=== PATIENT | female | born 1955 | race Caucasian/White ===

== ENCOUNTER 2019-11-23 15:32 | Observation (INO) | payer OTHER ==
--- NOTE | 2019-11-23 17:06 | PDOC ---
History of Present Illness - General Chief Complaint: Weakness Stated Complaint: Palpitations Time Seen by Provider: 11/23/19 15:57 - History of Present Illness Initial Comments: HPI 64 yo F with PMH of HTN, HLD, T2DM, hypothyroidism, asthma, panic attacks, ROHIT, insomnia, pancreatitis (with complications that required 3 week ICU admission in the past), ?CHF (taking lasix at home; does not recall), and ?bipolar disorder (describes periods of "over-excitation"; w/family hx of similar psychiatrics symptoms; taking trazadone since 2003) presenting with intermittent palpitations and sensation of heart racing x 2 weeks; pt unable to quantify how often or how long episodes occur. She reports associated L arm pain and tingling, nausea, generalized weakness, dyspnea with exertion (but not at rest), and bilateral lower leg swelling (although no edema observed in the ED) since the morning. Pt also with increased anxiety since her palpitations started. Pt also complaining of congestion, mild muscle aches, and possible dysuria for the last two days. Denies CP, fevers, chills, cough, wheezing, other urinary changes, dizziness, loss of consciousness, or changes in strength/sensation. Reports no recent changes in medications or medication adherence. No increased caffeine intake. No recent travel history, sick contacts, hx of blood clots, hx of malignancy, hx of sedentary lifestyle or prolonged siting/bed-rest. It should be noted that pt is poor historian in regards to describing her symptoms. PMHX: as in HPI + additional ICU admission (pt reports "stopped breathing to the brain" and "almost or basically that time") PSHX: extensive abdominal surgery - pt cannot recall what the surgery was. Meds: pt reports trazadone, synthroid, lisinopril, metformin, ambien, lasix; reports more medications but does not recall the names Allergies: nkda Tob: quit 1 year ago; 1/2 ppd x 40 years Etoh: denies recent use; occasionally in the past Rec drugs: denies PCP: at [facility], unable to recall name; also follows with a psychiatrist, unable to recall name ROS GENERAL/CONSTITUTIONAL: No fever or chills. + generalized weakness HEAD, EYES, EARS, NOSE AND THROAT: No change in vision. No ear pain or discharge. No sore throat. + congestion + mild muscle aches CARDIOVASCULAR: No chest pain. + dypnea with exertion, not at rest RESPIRATORY: No cough, wheezing, or hemoptysis. GASTROINTESTINAL: No vomiting, diarrhea or constipation. + nausea GENITOURINARY: No dysuria, frequency, or change in urination. MUSCULOSKELETAL: No joint pain. No neck or back pain. +mild muscle aches; L arm pain SKIN: No rash NEUROLOGIC: No headache, vertigo, loss of consciousness, or change in strength/sensation. ENDOCRINE: No increased thirst. No abnormal weight change HEMATOLOGIC/LYMPHATIC: No anemia, easy bleeding, or history of blood clots. ALLERGIC/IMMUNOLOGIC: No hives or skin allergy. PE GENERAL: Awake, alert, and fully oriented, in no acute distress; anxious appearing HEAD: No signs of trauma, normocephalic, atraumatic EYES: PERRLA, EOMI, sclera anicteric, conjunctiva clear ENT: Auricles normal inspection, hearing grossly normal, nares patent, oropharynx clear without exudates. Moist mucosa NECK: Normal ROM, supple, no lymphadenopathy, JVD, or masses LUNGS: No distress, speaks full sentences, clear to auscultation bilaterally HEART: Regular rate and rhythm, normal S1 and S2, no murmurs, rubs or gallops, peripheral pulses normal and equal bilaterally. ABDOMEN: Soft, nontender, normoactive bowel sounds. No guarding, no rebound. No masses. Extensive scars from previous abdominal surgery. EXTREMITIES : Normal inspection, Normal range of motion, no edema. No clubbing or cyanosis. NEUROLOGICAL: Cranial nerves II through XII grossly intact. Normal speech, normal gait, no focal sensorimotor deficits SKIN: Warm, Dry, normal turgor, no rashes or lesions noted 11/23/19 18:47 11/23/19 19:01 Past History - Medical History Allergies/Adverse Reactions: Allergies Allergy/AdvReac Type Severity Reaction Status Date / Time No Known Allergies Allergy Verified 11/23/19 15:47 Home Medications: Ambulatory Orders Diltiazem [Cardizem -] 60 mg PO TID 11/23/19 Furosemide [Lasix] 20 mg PO DAILY 11/23/19 Levothyroxine [Synthroid -] 75 mcg PO DAILY 11/23/19 Metformin HCl [Glucophage] 500 mg PO DAILY 11/23/19 Zolpidem Tartrate [Ambien] 5 mg PO HS 11/23/19 traZODone HCL [Trazodone HCl] 100 mg PO DAILY 11/23/19 COPD: Yes Diabetes: Yes (NIDDM) HTN: Yes Hypercholesterolemia: Yes Thyroid Disease: Yes - Surgical History Appendectomy: Yes - Psycho-Social/Smoking History Smoking History: Former smoker Have you smoked in the past 12 months: No If you are a former smoker, when did you quit?: 2019 Information on smoking cessation initiated: No - Substance Abuse Hx (Audit-C & DAST Scrn) How often the patient has a drink containing alcohol: Never Score: In Men: 4 or > Positive; In Women: 3 or > Positive: 0 Screen Result (Pos requires Nsg. Audit-10AR): Negative *Physical Exam - Vital Signs Last Vital Signs Temp Pulse Resp BP Pulse Ox 98.2 F 75 22 H 132/80 97 11/23/19 15:48 11/23/19 15:48 11/23/19 15:48 11/23/19 15:48 11/23/19 15:48 ED Treatment Course - LABORATORY CBC & Chemistry Diagram: 11/23/19 16:45 11/23/19 16:45 - RADIOLOGY Radiology Studies Ordered: Category Date Time Status CXR [CHEST PA & LAT] [RAD] Stat Radiology 11/23/19 16:37 Ordered Medical Decision Making - Medical Decision Making MDM 64 yo F (usually seen at [facility]) with PM of HTN, HLD, T2DM, hypothyroidism (on synthroid), asthma, panic attacks, insomnia, pancreatitis (with complications that required 3 week ICU admission in the past), ?CHF (taking lasix at home; does not recall), and ?bipolar disorder (describes periods of "over-excitation"; w/family hx of similar psychiatrics symptoms; taking trazadone since 2003) presenting with intermittent palpitations and sensation of heart racing x 2 weeks; a/w L arm pain and tingling, nausea, generalized weakness, dyspnea with exertion (but not at rest), and bilateral lower leg swelling (although no edema observed in the ED) since the morning. Also c/o congestion + mild muscle aches, and possible dysuria. DDX including but not limited to: arrythmia, anxiety/panic attack, orthostatic hypotension, thyroid pathology, CHF, medication induced, r/o ACS W/U: - CBC, CMP, cardiac profile, BNP, TSH - EKG - NSR 69 bpm, IN interval 174, QRS 106, Qt/Qtc 428/458 - CXR - no acute chest pathology - UA 11/23/19 17:15 Additional hx retrieved: - Called [facility] ED; pt has not been seen in the [facility] ED before - Called pt's daughter (Shelia, ) - Daughter reports pt follows at the [facility] ([phone]) - reports that pt does not have history of cardiac surgery to her knowledge - reports that pt's PCP wanted a "heart ultrasound and MRI" but was unable to do this as pt had to urgently go to [place] recently - reports that pt moved back to [place] 8 months ago. Before that she was in [place] for 10 years. Before that: [place] (20-25 y ago) - Called [facility] multiple times; could not reach anyone for additional history 11/23/19 18:14 - Initial trop neg - CK 536; TSH 58.7; Will add on FT4 Given history of multiple ICU admissions and possible cardiac history, will adm it for tele-obs 11/23/19 18:30 Pt signed out to admitting team. 11/23/19 19:11 Discharge - Discharge Information Problems reviewed: Yes Clinical Impression/Diagnosis: Palpitations Condition: Stable - Admission Yes - Follow up/Referral Referrals: ON STAFF,NOT [Primary Care Provider] - - Patient Discharge Instructions - Post Discharge Activity
[2019-11-23 17:21] LABS: BASO % 1.1 % (0-2.0); EOS % 3.3 % (0-4.5); HEMATOCRIT 39.7 % (32.4-45.2); HEMOGLOBIN 13.7 GM/dL (10.7-15.3); LYMPH % 29.2 % (8-40); MCH 29.1 pg (25.7-33.7); MCHC 34.4 g/dl (32.0-36.0); MEAN CELL VOLUME 84.4 fl (80-96); MEAN PLT VOLUME 9.3 fl (7.5-11.1); MONO % 5.3 % (3.8-10.2); NEUT % 61.1 % (42.8-82.8); PLATELET COUNT 239 K/MM3 (134-434); RDW 14.8 % (11.6-15.6); WHITE BLOOD COUNT 8.7 K/mm3 (4.0-10.0)
[2019-11-23] MEDS ORDERED: guaiFENesin 600 MG TABLET.ER (FP) PO ONE (17:29)
[2019-11-23 18:08] LABS: ALBUMIN 4.3 g/dl (3.4-5.0); ALK PHOS 113 U/L (45-117); ANION GAP 8 MMOL/L (8-16); BILIRUBIN,TOTAL 0.6 mg/dL (0.2-1); BLOOD UREA NITROGEN 18.5 mg/dL (7-18); CALCIUM 9.9 mg/dL (8.5-10.1); CHLORIDE 98 mmol/L (98-107); CO2 30 mmol/L (21-32); GLUCOSE,RANDOM 107 mg/dL (74-106); N-TERMINAL BNP 9.4 pg/ml (5-125); POTASSIUM 3.7 mmol/L (3.5-5.1); SGOT/AST 31 U/L (15-37); SGPT/ALT 32 U/L (13-61); SODIUM 136 mmol/L (136-145); TOT PROT 8.1 g/dl (6.4-8.2)
--- NOTE | 2019-11-23 18:28 | PDOC ---
Documentation entered by Tom Rivas SCRIBE, acting as scribe for Roman Costello MD. Roamn Costello MD: This documentation has been prepared by the Rob busby Xhesika, SCRIBE, under my direction and personally reviewed by me in its entirety. I confirm that the documentation accurately reflects all work, treatment, procedures, and medical decision making performed by me. Attending Attestation - Resident Resident Name: Vinay Norwood - ED Attending Attestation I have performed the following: I have examined & evaluated the patient, The case was reviewed & discussed with the resident, I agree w/resident's findings & plan, Exceptions are as noted - HPI HPI: 11/23/19 16:12 The patient is a 64y/o F with a pmh of HTN, HLD, [id number], hypothyroidism, asthma, ?CHF, pancreatitis (with prior ICU admission [id number]) and psych history who presents to the ED for 2 weeks of intermittent palpitations. Pt states this morning, her symptoms were associate with L arm pain and tingling, SOB on exertion and BLE edema. Pt also reports several days of increased anxiety, congestion, fatigue and nausea. Pt denies any CP, SOB at rest, headache, dizziness. Denies fevers, chills, V/D. Denies any URI symptoms. Allergies: NKDA PCP: @ [facility] - Physicial Exam PE: 11/23/19 18:28 See resident exam - Medical Decision Making 11/23/19 18:28 64 F with palpitations, SOB. EKG nonischemic, no evidence of arrhythmia. - Labs, trop, TSH Discharge - Discharge Information Problems reviewed: Yes Clinical Impression/Diagnosis: Palpitations Condition: Good Disposition: HOME - Follow up/Referral - Patient Discharge Instructions - Post Discharge Activity
--- NOTE | 2019-11-23 19:34 | PN ---
Teaching Attending Note Name of Resident: Abad Becerra ATTENDING PHYSICIAN STATEMENT I saw and evaluated the patient. I reviewed the resident's note and discussed the case with the resident. I agree with the resident's findings and plan as documented. SUBJECTIVE: Patient is a 64 year old woman with a PMH of HTN, HLD, NIDDM, Hypothyroidism, As thma, CHF, Pancreatitis (with prior ICU admission x 3weeks), Panic attacks, Prescribed CPAP (not using it) and Unspecified psychiatric illness who presents to the ER for 2 weeks of intermittent palpitations. Patient states this morning, her symptoms were associate with left arm pain and tingling, SOB on exertion and BLE edema. Also reports several days of increased anxiety, congestion, fatigue and nausea. Reports muscle aches since Lipitor dose was recently raised from 40 to 80 mg, and also has had constipation for past six months after ?Synthroid dose was reduced from 1999 to 75 mcg qd. Nothing has worked for the constipation. Denies any chest pain, SOB at rest, headache, dizziness. Patient denies abdominal pain, fever, chills, diarrhea, dysuria, frequency, urgency, melena, hematochezia or hematuria. Former smoker. Denies alcohol, tobacco or illicit drug use. No sick contacts or recent travels. Family history is unspecified cancers in father's sdie of the family, DM in brother and CAD in mother. OBJECTIVE: Alert Vital Signs Period Temp Pulse Resp BP Sys/Jolly Pulse Ox Last 24 Hr 98.2 F 75-77 22-22 132-139/80-88 97-97 HEENT: No Jaundice, eye redness or discharge, PERRLA, EOMI. Normocephalic, atraumatic. External ears are normal and hearing is grossly intact. No nasal discharge. Neck: Supple, nontender. No palpable adenopathy or thyromegaly. No JVD Chest: Good effort. Clear to auscultation and percussion. Heart: Regular. No S3, rub or murmur Abdomen: Not distended, soft, RUQ tenderness and no HSM. No rebound or guarding. Normal bowel sounds. Ext: Peripheral pulses intact. No leg edema. Skin: Warm and dry. No petechiae, rash or ecchymosis. Neuro: Alert. Oriented x3. CN 2-12 grossly intact. Sensation grossly intact in all four extremities and DTR are symmetric. Psych: Appropriate mood and affect. Good insight. Home Medications Medication Instructions Recorded Diltiazem [Cardizem -] 60 mg PO TID 11/23/19 Furosemide [Lasix] 20 mg PO DAILY 11/23/19 Levothyroxine [Synthroid -] 75 mcg PO DAILY 11/23/19 Metformin HCl [Glucophage] 500 mg PO DAILY 11/23/19 Zolpidem Tartrate [Ambien] 5 mg PO HS 11/23/19 traZODone HCL [Trazodone HCl] 100 mg PO DAILY 11/23/19 Abnormal Lab Results 11/23/19 16:45 BUN 18.5 H Random Glucose 107 H Creatine Kinase 536 H CK-MB (CK-2) 4.7 H TSH 58.70 H Current Medications Generic Name Dose Route Start Last Admin Trade Name Freq PRN Reason Stop Dose Admin Acetaminophen 650 mg 11/23/19 23:12 Tylenol - PO Q6H PRN PAIN LEVEL 6-10 Enoxaparin Sodium 40 mg 11/24/19 10:00 Lovenox - SQ DAILY [facility] Insulin Aspart 1 vial 11/23/19 22:00 Novolog Vial Sliding Scale - SQ ACHS [facility] Protocol Levothyroxine Sodium 75 mcg 11/24/19 10:00 Synthroid - PO AM JORDYN Melatonin 10 mg 11/23/19 23:12 Melatonin PO HS PRN INSOMNIA ASSESSMENT AND PLAN: 1. Palpitation/Rule out ACS - Symptoms may signal anxiety or CHF exacerbation. No acute abnormality on CXR. EKG shows NSR at 69/minute and QTc [address]-T wave changes. Initial troponin is negative. Will admit to telemetry, get urinalysis, urine toxicology, lipid profile, trend troponin, repeat EKG, get ECHO, free T4, treat with one dose of IV Lasix 40 mg, restrict dietary salt intake, monitor renal function, monitor and replete electrolytes, get daily weight and consult Cardiology/Endocrine. Adherence to Synthroid therapy is suspect -continue 75 mcg daily pending Endocrine evaluation. Rhabdomyolysis may signal myopathy associated with high dose statin - will hold statin, monitor CPK and avoid hydration pending ECHO. Get abdominal sonogram to evaluate RUQ tenderness and constipation. Treat with Fleet enema, Miralax 17 gm bid and consult GI. Viral testing for COVID-19 ordered and patient placed on airborne, droplet and contact isolation. Will continue comprehensive care for all of patients comorbid conditions. 2. DM For now, we will hold the home diabetes drugs and implement sliding scale insulin regimen. Provide comprehensive diabetes care with patient teaching and counseling about the importance of adherence to prescribed diabetes regimen, euglycemia, eye care and foot care. 3. Obesity Counseled on the risks associated with obesity. Will provide patient all the necessary assistance, counseling and positive reinforcement to facilitate weight loss. Consult supervisor housecleaner. 4. Hypertension Will restart suitable outpatient antihypertensive drugs when clinically appropriate. Subsequently, will revise regimen to ensure [id number] excellent BP control. Patient counseled on the injurious effects of uncontrolled hypertension. Nonpharmacologic measures to control hypertension like weight loss, salt restriction and exercise stressed. Importance of adherence to treatment regimen and attainment of normotension emphasized. 5. DVT prophylaxis - Lovenox 40 mg SQ q 24 hours. 6. Advance directives - Full code
--- NOTE | 2019-11-23 20:54 | HP ---
CHIEF COMPLAINT: Daily palpitations for 2 weeks with shortness of breath and lightheadedness PCP: [facility] HISTORY OF PRESENT ILLNESS: 64 year old female patient with past medical history that includes Hypothyroidism, HLD, ROHIT, Panic attacks, Insomnia, Asthma, NIDDM, HTN, Hx of Fal ls with her last fall 04/2019, and Hx of Pancreatitis with 3 weeks in the ICU, who presented to the emergency room with daily palpitations for 2 weeks with associated shortness of breath and lightheadedness, although she also gets short of breath on exertion. She gets a 'burning pressure' or soreness in her chest with the palpitations, as well. Her legs have been swelling up and are painful lately, although on physical exam no leg swelling was noted, with the patient saying that her legs look back to normal, although earlier in the day they were swollen. The patient a month ago had an increase in her Atorvastatin from 40mg to 80mg and she now reports generalized muscle aches as if her muscles are sore. On physical exam she reports some tenderness with a Trevizo's sign test. The patient reports she had been taking 200mg Levothyroxine previously, but her primary care physician reduced the dose down to 75mg daily about 4 months ago. She feels cold, fatigued, and has constipation not alleviated with [id number] stool softeners or 'natural colon pills'. She reports 'no good bowel movement in 2 weeks'. The patient also has been having panic attacks where she will 'cry and tremble'. She reports being under a lot of stress because her mother is 'very very sick' with a heart problem. Her panic attacks happen when she feels stressed or overwhelmed, as she has been recently. She is unable to sleep at night and will wake up in the middle of the night because she can't relax, so she has been taking higher doses of her trazadone than usual without telling her doctor. She typically takes 50mg Trazadone, but sometimes has been taking an extra dose lately. She has Obstructive Sleep Apnea and reports that she is supposed to be using a CPAP machine, but doesn't due to difficulty with obtaining one. ER course was notable for: (1) ECG (NSR with incomplete RBBB, 69bpm, MT 174ms, QTc 458ms) (2) Mucinex 600mg (3) TSH 58.7, CK 536 Recent Travel: Came here from [place] 8 months ago. Lived in [place] previously for 10 years. PAST MEDICAL HISTORY: Hypothyroidism, HLD, ROHIT, Panic attacks, Insomnia, Asthma, NIDDM, HTN, Hx of Falls with her last fall 04/2019, Hx of Pancreatitis with 3 weeks in the ICU PAST SURGICAL HISTORY: Laparotomy for infected pancreas in 1989 Social History: Smoking: Quit 1 year ago. 1/2 pack per day for 40 years Alcohol: Stopped drinking 30 years ago. 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 Home: Lives with daughter Allergies No Known Allergies Allergy (Verified 11/23/19 15:47) HOME MEDICATIONS: Home Medications Medication Instructions Recorded Diltiazem [Cardizem -] 60 mg PO TID 11/23/19 Furosemide [Lasix] 20 mg PO DAILY 11/23/19 Levothyroxine [Synthroid -] 75 mcg PO DAILY 11/23/19 Metformin HCl [Glucophage] 500 mg PO DAILY 11/23/19 Zolpidem Tartrate [Ambien] 5 mg PO HS 11/23/19 traZODone HCL [Trazodone HCl] 100 mg PO DAILY 11/23/19 REVIEW OF SYSTEMS CONSTITUTIONAL: chills Absent: CARDIOVASCULAR: chest pressure, palpitations at least once daily Absent: RESPIRATORY: shortness of breath during palpitations, shortness of breath on exertion Absent: GASTROINTESTINAL: nausea, constipation with 'no good bowel movement in 2 weeks' Absent: denies vomiting (although patient tried to vomit but couldn't) MUSCULOSKELETAL: leg swelling, left arm electric radiculopathy, muscle aches Absent: ENDOCRINE: unusually cold Absent: NEUROLOGIC: lightheadedness, feels unbalanced Absent: PSYCHIATRIC: wakes up at night because she 'can't relax' Absent: PHYSICAL EXAMINATION Vital Signs - 24 hr 11/23/19 15:48 Temperature 98.2 F Pulse Rate 75 Respiratory 22 H Rate Blood Pressure 132/80 O2 Sat by Pulse 97 Oximetry (%) GENERAL: Awake, alert, and fully oriented, in no acute distress. HEAD: Normal with no signs of trauma. EYES: Pupils equal, round and reactive to light, extraocular movements intact. No lid lag. EARS, NOSE, THROAT: Ears normal, nares patent, oropharynx clear without exudates. Moist mucous membranes. NECK: Normal range of motion, supple without lymphadenopathy, JVD, or masses. LUNGS: Breath sounds equal, clear to auscultation bilaterally. No wheezes, and no crackles. No accessory muscle use. HEART: Systolic murmur heard best at right sternal border. Regular rate and rhythm, normal S1 and S2 without murmur, rub or gallop. ABDOMEN: Soft, nontender, high BMI, hypoactive bowel sounds, no guarding, no rebound, no masses. No hepatomegaly or splenomegaly. + Mild tenderness with Trevizo's sign. MUSCULOSKELETAL: Normal range of motion at all joints. No bony deformities or tenderness. UPPER EXTREMITIES: 2+ pulses, warm, well-perfused. No cyanosis. No clubbing. No peripheral edema. LOWER EXTREMITIES: 2+ pulses, warm, well-perfused. No calf tenderness. No peripheral edema. NEUROLOGICAL: Normal speech. Muscle strength mildly weak but +5/5 in both upper and lower extremities bilaterally with patient complaining of general muscle aches during muscle strength test. PSYCHIATRIC: Cooperative. Good eye contact. Appropriate mood and affect. SKIN: Warm, dry, normal turgor, no rashes or lesions noted, normal capillary refill. Laboratory Results - last 24 hr 11/23/19 11/23/19 16:45 16:45 WBC 8.7 RBC 4.70 Hgb 13.7 Hct 39.7 MCV 84.4 MCH 29.1 MCHC 34.4 RDW 14.8 Plt Count 239 MPV 9.3 Absolute Neuts (auto) 5.3 Neutrophils % 61.1 Lymphocytes % 29.2 Monocytes % 5.3 Eosinophils % 3.3 Basophils % 1.1 Nucleated RBC % 0 Sodium 136 Potassium 3.7 Chloride 98 Carbon Dioxide 30 Anion Gap 8 BUN 18.5 H Creatinine 1.0 Est GFR (CKD-EPI)AfAm 69.92 Est GFR (CKD-EPI)NonAf 60.33 Random Glucose 107 H Calcium 9.9 Total Bilirubin 0.6 AST 31 ALT 32 Alkaline Phosphatase 113 Creatine Kinase 536 H Creatine Kinase Index 0.8 CK-MB (CK-2) 4.7 H Troponin I < 0.02 B-Natriuretic Peptide 9.4 Total Protein 8.1 Albumin 4.3 TSH 58.70 H ASSESSMENT/PLAN: 64 year old female patient with past medical history that includes Hypothyroidism, HLD, ROHIT, Panic attacks, Insomnia, Asthma, NIDDM, HTN, Hx of Falls with her last fall 04/2019, and Hx of Pancreatitis with 3 weeks in the ICU, who presented to the emergency room with daily palpitations for 2 weeks, shortness of breath, and lightheadedness. 1. Palpitations and Shortness of breath/rule out ACS. DDx includes but is not limited to panic attacks vs CHF exacerbation vs paroxysmal heart arrhythmias - ordered Urine Toxicology - ordered Lipid Profile - Ordered repeat Troponin - Tele - Ordered ECHO - I/O and daily weights - one dose Lasix 40mg given - Cardiology consulted 2. Hypothyroidism - Synthroid resumed - Endocrinology consulted 3. Rhabdomyolysis with diffuse muscle aches possibly due to recent increase in Atorvastatin dose - Atorvastatin on hold 4. Constipation likely secondary to hypothyroidism - Fleet enema ordered - Miralax BID 5. Mild tenderness with Trevizo's sign test possibly secondary to liver dysfunction vs constipation - Abdominal U/S 6. DM - Novolog Sliding Scale - Blood Glucose Monitoring 7. Obesity - Environmental Compliance Inspector Consulted 8. HTN - Can resume home HTN medications when clinically appropriate 9. Insomnia/Panic Attacks - one dose Trazodone 50mg given #FEN - Monitor Electrolytes. Low Na, low fat, diabetic diet, but NPO for now until after the ultrasound in the morning. DVT PPx - Lovenox SQ Family Medical History Family History: As Documented Family Hx Cardiac Disorders: Mother Family Hx Diabetes: Brother Other Family History: Father's side - Multiple cancers (patient doesn't know which cancers), Grandmother - Thyroid nodule Visit type - Emergency Visit Emergency Visit: Yes ED Registration Date: 11/23/19 Care time: The patient presented to the Emergency Department on the above date and was hospitalized for further evaluation of their emergent condition. - New Patient This patient is new to me today: Yes Date on this admission: 11/24/19 - Critical Care Critical Care patient: No ATTENDING PHYSICIAN STATEMENT I saw and evaluated the patient. I reviewed the resident's note and discussed the case with the resident. I agree with the resident's findings and plan as documented. SUBJECTIVE: OBJECTIVE: ASSESSMENT AND PLAN:
[2019-11-23 21:21] LABS: URINE APPEARANCE CLEAR; URINE BILIRUBIN NEGATIVE (NEGATIVE); URINE COLOR YELLOW; URINE GLUCOSE (UA) NEGATIVE (NEGATIVE); URINE KETONE NEGATIVE (NEGATIVE); URINE LEUK ESTERASE NEGATIVE (NEGATIVE); URINE NITRITE NEGATIVE (NEGATIVE); URINE PROTEIN NEGATIVE (NEGATIVE); URINE UROBILINOGEN 0.2 mg/dL (0.2-1.0)
[2019-11-23] MEDS ORDERED: HEPARIN NA (PORCINE) 5,000 UNITS/ML 1ML VIAL SQ SCH (22:00)
[2019-11-23] MEDS ORDERED: traZODone HCL 50 MG TABLET (FP) PO ONE (23:02)
[2019-11-23] MEDS ORDERED: FUROSEMIDE 40 MG TABLET (FP) PO ONE (23:02)
[2019-11-23] MEDS ORDERED: MELATONIN 5 MG TABLETS PO PRN (23:12)
[2019-11-24] MEDS: ACETAMINOPHEN 325 MG TABLET (FP) PO PRN ×2 (00:03→10:36)
[2019-11-24] MEDS: INSULIN SLIDING SCALE (NOVOLOG) 1 VIAL SQ SCH ×3 (00:05→11:28)
[2019-11-24] MEDS ORDERED: MINERAL OIL ENEMA 133 ML ENEMA PR ONE ×2 (00:10→06:00)
[2019-11-24 01:59] VITALS: BMI 34.1
[2019-11-24] MEDS ORDERED: IBUPROFEN 600 MG TABLET (FP) PO PRN (02:30)
[2019-11-24 04:28] LABS: METHADONE, UR NEGATIVE ng/ml (CUTOFF=300); OPIATES, URI NEGATIVE ng/ml (CUTOFF=300); PHENCYCLIDINE,URINE NEGATIVE ng/ml (CUTOFF=25); URINE BARBITURATES NEGATIVE ng/ml (CUTOFF=200); URINE BENZODIAZEPINES NEGATIVE ng/ml (CUTOFF=200)
[2019-11-24 04:40] LABS: COCAINE, UR NEGATIVE ng/ml (CUTOFF=300); URINE AMPHETAMINES NEGATIVE ng/ml (CUTOFF=500)
[2019-11-24 08:07] LABS: HEMATOCRIT 37.6 % (32.4-45.2); HEMOGLOBIN 12.7 GM/dL (10.7-15.3); MCH 28.6 pg (25.7-33.7); MCHC 33.9 g/dl (32.0-36.0); MEAN CELL VOLUME 84.4 fl (80-96); MEAN PLT VOLUME 9.2 fl (7.5-11.1); PLATELET COUNT 204 K/MM3 (134-434); RBC 4.45 M/mm3 (3.60-5.2); RDW 14.7 % (11.6-15.6); WHITE BLOOD COUNT 7.5 K/mm3 (4.0-10.0)
[2019-11-24 08:27] LABS: POTASSIUM 3.7 mmol/L (3.5-5.1)
[2019-11-24] MEDS ORDERED: HYDROCORTISONE SOD SUCCINATE 100 MG/2 ML VIAL IVPUSH SCH (08:30)
[2019-11-24 08:39] LABS: BLOOD UREA NITROGEN 18.4 mg/dL (7-18); CALCIUM 9.1 mg/dL (8.5-10.1); MAGNESIUM 1.9 mg/dL (1.8-2.4)
--- NOTE | 2019-11-24 09:30 | EKG ---
Test Reason : Blood Pressure : / mmHG Vent. Rate : 069 BPM Atrial Rate : 069 BPM P-R Int : 174 ms QRS Dur : 106 ms QT Int : 428 ms P-R-T Axes : -12 -09 113 degrees QTc Int : 458 ms NORMAL SINUS RHYTHM INCOMPLETE RIGHT BUNDLE BRANCH BLOCK NONSPECIFIC T WAVE ABNORMALITY ABNORMAL ECG NO PREVIOUS ECGS AVAILABLE Confirmed by ATILIO PITTMAN MD ([id number]) on 11/24/2019 9:29:33 AM Referred By: Confirmed By:ATILIO PITTMAN MD
[2019-11-24] MEDS ORDERED: LEVOTHYROXINE NA 75 MCG TABLET (FP) PO SCH (10:00)
[2019-11-24] MEDS ORDERED: ENOXAPARIN NA (PORCINE) 40 MG/0.4 ML DISP.SYRIN SQ SCH (10:00)
[2019-11-24] MEDS ORDERED: POLYETHYLENE GLYCOL 3350 119 GM BTL PO SCH (10:00)
--- NOTE | 2019-11-24 12:09 | CON.CARD ---
Cardiology Consult (text) - Consultation Consultation Note: cc: palps, sob hpi: 64 f hx hld, dm, hypothyroid, htn, here with palps and sob. For past few weeks has noticed palps (heart skipping) and weeks. Symptoms occur separately mostly. No cp loc pnd orthopnea le edema. No hx hrt dz. pmh: per hpi psh: laparotomy social: no tob fam: no premature cad scd ros: per hpi; all others nl meds: Home Medications Medication Instructions Recorded Diltiazem [Cardizem -] 60 mg PO TID 11/23/19 Furosemide [Lasix] 20 mg PO DAILY 11/23/19 Levothyroxine [Synthroid -] 75 mcg PO DAILY 11/23/19 Metformin HCl [Glucophage] 500 mg PO DAILY 11/23/19 Zolpidem Tartrate [Ambien] 5 mg PO HS 11/23/19 traZODone HCL [Trazodone HCl] 100 mg PO DAILY 11/23/19 pe: Vital Signs Period Temp Pulse Resp BP Sys/Jolly Pulse Ox Last 24 Hr 97.5 F-98.2 F 68-77 18-22 114-139/62-97 94-97 nad no jvd rrr s1s2 no mrg cta bl nl eff aao3 no le e/c/c abd nt nd pos bs no jaundice diaphoresis pos dp pt no carotid bruits Laboratory Last Values WBC 7.5 K/mm3 (4.0-10.0) 11/24/19 05:45 RBC 4.45 M/mm3 (3.60-5.2) 11/24/19 05:45 Hgb 12.7 GM/dL (10.7-15.3) 11/24/19 05:45 Hct 37.6 % (32.4-45.2) 11/24/19 05:45 MCV 84.4 fl (80-96) 11/24/19 05:45 MCH 28.6 pg (25.7-33.7) 11/24/19 05:45 MCHC 33.9 g/dl (32.0-36.0) 11/24/19 05:45 RDW 14.7 % (11.6-15.6) 11/24/19 05:45 Plt Count 204 K/MM3 (134-434) 11/24/19 05:45 MPV 9.2 fl (7.5-11.1) 11/24/19 05:45 Absolute Neuts (auto) 5.3 K/mm3 (1.5-8.0) 11/23/19 16:45 Neutrophils % 61.1 % (42.8-82.8) 11/23/19 16:45 Lymphocytes % 29.2 % (8-40) 11/23/19 16:45 Monocytes % 5.3 % (3.8-10.2) 11/23/19 16:45 Eosinophils % 3.3 % (0-4.5) 11/23/19 16:45 Basophils % 1.1 % (0-2.0) 11/23/19 16:45 Nucleated RBC % 0 % (0-0) 11/23/19 16:45 Sodium 136 mmol/L (136-145) 11/24/19 05:45 Potassium 3.7 mmol/L (3.5-5.1) 11/24/19 05:45 Chloride 98 mmol/L (98-107) 11/24/19 05:45 Carbon Dioxide 30 mmol/L (21-32) 11/24/19 05:45 Anion Gap 9 MMOL/L (8-16) 11/24/19 05:45 BUN 18.4 mg/dL (7-18) H 11/24/19 05:45 Creatinine 1.0 mg/dL (0.55-1.3) 11/24/19 05:45 Est GFR (CKD-EPI)AfAm 69.92 11/24/19 05:45 Est GFR (CKD-EPI)NonAf 60.33 11/24/19 05:45 POC Glucometer 151 UNITS (80-120) 11/24/19 11:24 Random Glucose 105 mg/dL (74-106) 11/24/19 05:45 Calcium 9.1 mg/dL (8.5-10.1) 11/24/19 05:45 Phosphorus 4.0 mg/dL (2.5-4.9) 11/24/19 05:45 Magnesium 1.9 mg/dL (1.8-2.4) 11/24/19 05:45 Total Bilirubin 0.6 mg/dL (0.2-1) 11/23/19 16:45 AST 31 U/L (15-37) 11/23/19 16:45 ALT 32 U/L (13-61) 11/23/19 16:45 Alkaline Phosphatase 113 U/L (45-117) 11/23/19 16:45 Creatine Kinase 536 U/L (26-192) H 11/23/19 16:45 Creatine Kinase Index 0.8 % (0.0-5.0) 11/23/19 16:45 CK-MB (CK-2) 4.7 ng/mL (0.5-3.6) H 11/23/19 16:45 Troponin I < 0.02 ng/ml (0.00-0.05) 11/23/19 16:45 B-Natriuretic Peptide 9.4 pg/ml (5-125) 11/23/19 16:45 Total Protein 8.1 g/dl (6.4-8.2) 11/23/19 16:45 Albumin 4.3 g/dl (3.4-5.0) 11/23/19 16:45 Triglycerides 903 mg/dL (0-150) H 11/24/19 05:45 Cholesterol 229 mg/dL (50-200) H 11/24/19 05:45 Total LDL Cholesterol 68 mg/dL (5-100) 11/24/19 05:45 HDL Cholesterol 32 mg/dL (40-60) L 11/24/19 05:45 TSH 86.80 uIU/ml (0.358-3.74) H 11/24/19 05:45 Urine Color Yellow 11/23/19 20:41 Urine Appearance Clear 11/23/19 20:41 Urine pH 7.0 (5.0-8.0) 11/23/19 20:41 Ur Specific [place] 1.008 (1.010-1.035) L 11/23/19 20:41 Urine Protein Negative (NEGATIVE) 11/23/19 20:41 Urine Glucose (UA) Negative (NEGATIVE) 11/23/19 20:41 Urine Ketones Negative (NEGATIVE) 11/23/19 20:41 Urine Blood Negative (NEGATIVE) 11/23/19 20:41 Urine Nitrite Negative (NEGATIVE) 11/23/19 20:41 Urine Bilirubin Negative (NEGATIVE) 11/23/19 20:41 Urine Urobilinogen 0.2 mg/dL (0.2-1.0) 11/23/19 20:41 Ur Leukocyte Esterase Negative (NEGATIVE) 11/23/19 20:41 Opiates Screen Negative ng/ml (HFEASM=976) 11/23/19 04:05 Methadone Screen Negative ng/ml (SPTZGU=402) 11/23/19 04:05 Barbiturate Screen Negative ng/ml (DHJGYU=464) 11/23/19 04:05 Phencyclidine Screen Negative ng/ml (CUTOFF=25) 11/23/19 04:05 Ur Amphetamines Screen Negative ng/ml (GZFFRQ=825) 11/23/19 04:05 MDMA (Ecstasy) Screen Negative ng/ml (JQLOSX=944) 11/23/19 04:05 Benzodiazepines Screen Negative ng/ml (DRFEGT=997) 11/23/19 04:05 Cocaine Screen Negative ng/ml (JEGOTX=985) 11/23/19 04:05 U Marijuana (THC) Screen Negative ng/ml (CUTOFF=50) 11/23/19 04:05 COVID-19 ([facility]NCHE[facility]) Not detected (Not Detected) 11/23/19 19:10 cxr: clear ecg: sr, nl intervals irbbb tele: sr, occ pvcs a/p: 64 f hx hld, dm, hypothyroid, htn, here with palps and sob. palps: -tele showing occasional pvcs, possible cause of palps, cont tele -pt also with significant untreated hypothyroid with tsh in 80s here, likely contributing to her palps, weeks. endo consulted. -cont home dilt -check echo to see lvef-->pt refused today when went down for echo weeks, sob: -no signs acs -no signs chf, bnp low -possibly related to severe hypothyroid -check echo hld: -had myalgias with statin, hold for now htn: -cont home dilt
[2019-11-24] MEDS ORDERED: dilTIAZem HCL 60 MG TABLET PO SCH (14:20)
[2019-11-24] MEDS ORDERED: FUROSEMIDE 20 MG TABLET (FP) PO SCH ×2 (14:45→15:45)
--- NOTE | 2019-11-24 14:57 | PN ---
Teaching Attending Note Name of Resident: Maggi Carmen ATTENDING PHYSICIAN STATEMENT I saw and evaluated the patient. I reviewed the resident's note and discussed the case with the resident. I agree with the resident's findings and plan as documented. SUBJECTIVE: pt seen and examined OBJECTIVE: Last Vital Signs Temp Pulse Resp BP Pulse Ox 98.1 F 66 18 142/71 98 11/24/19 10:00 11/24/19 10:00 11/24/19 10:00 11/24/19 10:00 11/24/19 10:00 GENERAL: Awake, alert, and fully oriented, in no acute distress. HEAD: Normal with no signs of trauma. EYES: Pupils equal, round and reactive to light, sclera anicteric, conjunctiva clear. LUNGS: Breath sounds equal, clear to auscultation bilaterally. No wheezes, and no crackles. No accessory muscle use. HEART: Regular rate and rhythm, normal S1 and S2 ABDOMEN: Soft, nontender, not distended MUSCULOSKELETAL: Normal range of motion at all joints. No bony deformities or tenderness. No CVA tenderness. UPPER EXTREMITIES: 2+ pulses, warm, well-perfused. No cyanosis. No clubbing. No peripheral edema. LOWER EXTREMITIES: 2+ pulses, warm, well-perfused. No calf tenderness. No peripheral edema. NEUROLOGICAL: Cranial nerves II-XII intact. Normal speech. CBCD WBC 7.5 K/mm3 (4.0-10.0) 11/24/19 05:45 RBC 4.45 M/mm3 (3.60-5.2) 11/24/19 05:45 Hgb 12.7 GM/dL (10.7-15.3) 11/24/19 05:45 Hct 37.6 % (32.4-45.2) 11/24/19 05:45 MCV 84.4 fl (80-96) 11/24/19 05:45 MCHC 33.9 g/dl (32.0-36.0) 11/24/19 05:45 RDW 14.7 % (11.6-15.6) 11/24/19 05:45 Plt Count 204 K/MM3 (134-434) 11/24/19 05:45 MPV 9.2 fl (7.5-11.1) 11/24/19 05:45 CMP Sodium 136 mmol/L (136-145) 11/24/19 05:45 Potassium 3.7 mmol/L (3.5-5.1) 11/24/19 05:45 Chloride 98 mmol/L (98-107) 11/24/19 05:45 Carbon Dioxide 30 mmol/L (21-32) 11/24/19 05:45 Anion Gap 9 MMOL/L (8-16) 11/24/19 05:45 BUN 18.4 mg/dL (7-18) H 11/24/19 05:45 Creatinine 1.0 mg/dL (0.55-1.3) 11/24/19 05:45 Calcium 9.1 mg/dL (8.5-10.1) 11/24/19 05:45 Total Bilirubin 0.6 mg/dL (0.2-1) 11/23/19 16:45 AST 31 U/L (15-37) 11/23/19 16:45 ALT 32 U/L (13-61) 11/23/19 16:45 Alkaline Phosphatase 113 U/L (45-117) 11/23/19 16:45 Total Protein 8.1 g/dl (6.4-8.2) 11/23/19 16:45 Albumin 4.3 g/dl (3.4-5.0) 11/23/19 16:45 Active Medications Acetaminophen (Tylenol -) 650 mg PO Q6H PRN PRN Reason: PAIN LEVEL 6-10 Last Admin: 11/24/19 10:36 Dose: 650 mg Documented by: Diltiazem HCl (Cardizem -) 60 mg PO TID [facility] Enoxaparin Sodium (Lovenox -) 40 mg SQ DAILY [facility] Last Admin: 11/24/19 10:35 Dose: 40 mg Documented by: Furosemide (Lasix -) 20 mg PO DAILY [facility] Insulin Aspart (Novolog Vial Sliding Scale -) 1 vial SQ ACHS [facility]; Protocol Last Admin: 11/24/19 11:28 Dose: 2 units Documented by: Levothyroxine Sodium (Synthroid -) 125 mcg PO DAILY@0700 [facility] Melatonin (Melatonin) 10 mg PO HS PRN PRN Reason: INSOMNIA Last Admin: 11/24/19 00:05 Dose: 10 mg Documented by: Polyethylene Glycol (Miralax (For Daily Use) -) 17 gm PO BID [facility] Last Admin: 11/24/19 10:35 Dose: 17 gm Documented by: ASSESSMENT AND PLAN: 64 year old woman with a PMH of HTN, HLD, NIDDM, obesity, Hypothyroidism, Asthma, CHF, Pancreatitis (with prior ICU admission x 3weeks), Panic attacks, ROHIT prescribed CPAP (not using it) who presents to the ER for 2 weeks of intermittent palpitations # Uncontrolled Hypothyroidism reported feeling cold, constipations, denies low BP HR 50s-60s pt reporting her levothyroxine was changed in [place] TSH >50 endocrine consult appreciated cardiology consult appreciated will increase levothyroxine discussed medication compliance with pt and provided educations about risks and implications of uncontrolled hypothyroidism outpatient follow up with Endocrine # statin induced myopathy -mild CK elevation, will hold statin for 2 days then resume low dose. -outpatient follow up with PCP/endocrine to adjust medications HTN HLD DM Obesity Asthma ROHIT CHF (refused ECHO, will set up outpatient follow up with verifier operator) panic attacks DVT prophylaxis
--- NOTE | 2019-11-24 15:51 | DS ---
Physical Exam: SUBJECTIVE: Patient seen and examined at bedside, reports feeling cold and constipated. Denies any active chest pain, palpitations, nausea, vomiting, diarrhea. OBJECTIVE: Vital Signs Period Temp Pulse Resp BP Sys/Jolly Pulse Ox Last 24 Hr 97.5 F-98.2 F 66-77 18-22 114-142/62-97 94-98 PHYSICAL EXAM GENERAL: AAOx3, in no acute distress HEENT: NCAT, PERRLA, EOMI, sclera anicteric, conjunctiva clear, oropharynx clear w/o exudates. MMM. NECK: Normal ROM, supple, no lymphadenopathy, JVD, or masses LUNGS: CTABL no wheezes/ rhonchi/ rales. No distress, speaks in full sentences. No increased work of breathing. HEART: RRR, normal S1 S2, no M/R/G, peripheral pulses 2+ and equal b/l ABDOMEN: Soft, non-tender, + BS. No guarding or rebound. No hepatomegaly or splenomegaly. MSK: ROM WNL, NO CVA tenderness EXTREMITIES: Normal inspection. No peripheral edema. No clubbing or cyanosis. NEUROLOGICAL: CN II-XII intact. Normal speech, gait not observed, no focal sensorimotor deficits. PSYCH: Normal mood, normal affect. SKIN: Warm, Dry, normal turgor, no rashes or lesions noted LABS Laboratory Results - last 24 hr 11/23/19 11/23/19 11/23/19 00:04 04:05 16:45 WBC 8.7 RBC 4.70 Hgb 13.7 Hct 39.7 MCV 84.4 MCH 29.1 MCHC 34.4 RDW 14.8 Plt Count 239 MPV 9.3 Absolute Neuts (auto) 5.3 Neutrophils % 61.1 Lymphocytes % 29.2 Monocytes % 5.3 Eosinophils % 3.3 Basophils % 1.1 Nucleated RBC % 0 Sodium Potassium Chloride Carbon Dioxide Anion Gap BUN Creatinine Est GFR (CKD-EPI)AfAm Est GFR (CKD-EPI)NonAf POC Glucometer Random Glucose Calcium Phosphorus Magnesium Total Bilirubin AST ALT Alkaline Phosphatase Creatine Kinase Creatine Kinase Index CK-MB (CK-2) Troponin I < 0.02 B-Natriuretic Peptide Total Protein Albumin Triglycerides Cholesterol Total LDL Cholesterol HDL Cholesterol TSH Urine Color Urine Appearance Urine pH Ur Specific [place] Urine Protein Urine Glucose (UA) Urine Ketones Urine Blood Urine Nitrite Urine Bilirubin Urine Urobilinogen Ur Leukocyte Esterase Opiates Screen Negative Methadone Screen Negative Barbiturate Screen Negative Phencyclidine Screen Negative Ur Amphetamines Screen Negative MDMA (Ecstasy) Screen Negative Benzodiazepines Screen Negative Cocaine Screen Negative U Marijuana (THC) Screen Negative COVID-19 ([facility]) 11/23/19 11/23/19 11/23/19 16:45 19:10 20:41 WBC RBC Hgb Hct MCV MCH MCHC RDW Plt Count MPV Absolute Neuts (auto) Neutrophils % Lymphocytes % Monocytes % Eosinophils % Basophils % Nucleated RBC % Sodium 136 Potassium 3.7 Chloride 98 Carbon Dioxide 30 Anion Gap 8 BUN 18.5 H Creatinine 1.0 Est GFR (CKD-EPI)AfAm 69.92 Est GFR (CKD-EPI)NonAf 60.33 POC Glucometer Random Glucose 107 H Calcium 9.9 Phosphorus Magnesium Total Bilirubin 0.6 AST 31 ALT 32 Alkaline Phosphatase 113 Creatine Kinase 536 H Creatine Kinase Index 0.8 CK-MB (CK-2) 4.7 H Troponin I < 0.02 B-Natriuretic Peptide 9.4 Total Protein 8.1 Albumin 4.3 Triglycerides Cholesterol Total LDL Cholesterol HDL Cholesterol TSH 58.70 H Urine Color Yellow Urine Appearance Clear Urine pH 7.0 Ur Specific [place] 1.008 L Urine Protein Negative Urine Glucose (UA) Negative Urine Ketones Negative Urine Blood Negative Urine Nitrite Negative Urine Bilirubin Negative Urine Urobilinogen 0.2 Ur Leukocyte Esterase Negative Opiates Screen Methadone Screen Barbiturate Screen Phencyclidine Screen Ur Amphetamines Screen MDMA (Ecstasy) Screen Benzodiazepines Screen Cocaine Screen U Marijuana (THC) Screen COVID-19 ([facility]) Not detected 11/23/19 11/24/19 11/24/19 23:21 05:45 05:45 WBC 7.5 RBC 4.45 Hgb 12.7 Hct 37.6 MCV 84.4 MCH 28.6 MCHC 33.9 RDW 14.7 Plt Count 204 MPV 9.2 Absolute Neuts (auto) Neutrophils % Lymphocytes % Monocytes % Eosinophils % Basophils % Nucleated RBC % Sodium 136 Potassium 3.7 Chloride 98 Carbon Dioxide 30 Anion Gap 9 BUN 18.4 H Creatinine 1.0 Est GFR (CKD-EPI)AfAm 69.92 Est GFR (CKD-EPI)NonAf 60.33 POC Glucometer 106 Random Glucose 105 Calcium 9.1 Phosphorus 4.0 Magnesium 1.9 Total Bilirubin AST ALT Alkaline Phosphatase Creatine Kinase Creatine Kinase Index CK-MB (CK-2) Troponin I B-Natriuretic Peptide Total Protein Albumin Triglycerides Cholesterol Total LDL Cholesterol HDL Cholesterol TSH Urine Color Urine Appearance Urine pH Ur Specific [place] Urine Protein Urine Glucose (UA) Urine Ketones Urine Blood Urine Nitrite Urine Bilirubin Urine Urobilinogen Ur Leukocyte Esterase Opiates Screen Methadone Screen Barbiturate Screen Phencyclidine Screen Ur Amphetamines Screen MDMA (Ecstasy) Screen Benzodiazepines Screen Cocaine Screen U Marijuana (THC) Screen COVID-19 ([facility]) 11/24/19 11/24/19 11/24/19 05:45 06:27 11:24 WBC RBC Hgb Hct MCV MCH MCHC RDW Plt Count MPV Absolute Neuts (auto) Neutrophils % Lymphocytes % Monocytes % Eosinophils % Basophils % Nucleated RBC % Sodium Potassium Chloride Carbon Dioxide Anion Gap BUN Creatinine Est GFR (CKD-EPI)AfAm Est GFR (CKD-EPI)NonAf POC Glucometer 109 151 Random Glucose Calcium Phosphorus Magnesium Total Bilirubin AST ALT Alkaline Phosphatase Creatine Kinase Creatine Kinase Index CK-MB (CK-2) Troponin I B-Natriuretic Peptide Total Protein Albumin Triglycerides 903 H Cholesterol 229 H Total LDL Cholesterol 68 HDL Cholesterol 32 L TSH 86.80 H Urine Color Urine Appearance Urine pH Ur Specific [place] Urine Protein Urine Glucose (UA) Urine Ketones Urine Blood Urine Nitrite Urine Bilirubin Urine Urobilinogen Ur Leukocyte Esterase Opiates Screen Methadone Screen Barbiturate Screen Phencyclidine Screen Ur Amphetamines Screen MDMA (Ecstasy) Screen Benzodiazepines Screen Cocaine Screen U Marijuana (THC) Screen COVID-19 ([facility]) HOSPITAL COURSE: Date of Admission:11/24/19 64 year old woman with a PMH of HTN, HLD, NIDDM, obesity, Hypothyroidism, Asthma, CHF, Pancreatitis (with prior ICU admission x 3weeks), Panic attacks, ROHIT prescribed CPAP (not using it) who presents to the ER for 2 weeks of intermittent palpitations, admitted for Uncontrolled Hypothyroidism. Patient reported feeling cold, constipations, but denies low BP. v/s showed HR 50s-60s. pt reports that her levothyroxine was changed in [place]. Labs showed TSH >50, repeat 86.8. Endocrine was consulted, who recommended increasing her home meds and outpatient f/u. discussed medication compliance with the pt and provided her with educations about risks and implications of uncontrolled hypothyroidism and provided her with outpatient follow up with Endocrine. Patient is clinically stable for discharge, provided her with necessary referrals and prescriptions as listed below. Date of Discharge: 11/24/19 Minutes to complete discharge: 36 Discharge Summary Problems reviewed: Yes Reason For Visit: PALPITATIONS ACUTE CORONARY SYNDROME Current Active Problems Palpitations (Acute) Condition: Good - Instructions Diet, Activity, Other Instructions: YOUR VISIT: You were admitted to the hospital for rapid heart rate. We did not find any abnormalities on your labs and imaging that concerns your heart. We treated you with one dose of diuretic. Your labs showed elevated TSH 86.80, indicating that you thyroids are not functioning properly, we consulted Endocrinology, who recommended increasing dose of levothyroxine (synthyroid) Your labs showed elevated cholesterols and fatty acid in your blood, you will need to follow up with your PCP for repeat blood works and medication adjustment. MEDICATIONS: Please START taking Synthroid 125 mcg Continue to take all other home medications as prescribed FOLLOW UPS: Please follow up with your fertilizer loader, Dr. Redd within 1 week for repeat labs and medication adjustment. Please visit your primary care provider within 2 weeks to follow up with your labwork and hospital visit. Please schedule a follow up appointment with automotive quality engineer ADDITIONAL INSTRUCTIONS: You are being discharged to your home. Please return to the Emergency department if you are experiencing worsening or concerning symptoms. Referrals: Juan Redd MD [Staff Physician] - 1 Week (elevated TSH 86.8, Hx of hypothyroidism) ON STAFF,NOT [Primary Care Provider] - Disposition: HOME - Home Medications Comprehensive Discharge Medication List: Ambulatory Orders Diltiazem [Cardizem -] 60 mg PO BID 11/23/19 Furosemide [Lasix] 20 mg PO DAILY 11/23/19 Metformin HCl [Glucophage] 500 mg PO DAILY 11/23/19 Zolpidem Tartrate [Ambien] 5 mg PO HS 11/23/19 traZODone HCL [Trazodone HCl] 100 mg PO DAILY 11/23/19 Levothyroxine [Synthroid -] 125 mcg PO DAILY@0700 #30 tablet 11/24/19 This patient is new to me today: No Emergency Visit: Yes ED Registration Date: 11/24/19 Care time: The patient presented to the Emergency Department on the above date and was hospitalized for further evaluation of their emergent condition. Critical Care patient: No - Discharge Referral Referred to [facility] No ATTENDING PHYSICIAN STATEMENT I saw and evaluated the patient. I reviewed the resident's note and discussed the case with the resident. I agree with the resident's findings and plan as documented. SUBJECTIVE: OBJECTIVE: ASSESSMENT AND PLAN:
[2019-11-24 16:18] VITALS: BP 120/79; PULSE 82; TEMP 98.3
--- NOTE | 2019-11-24 23:32 | CONSULT ---
Consult Consult Specialty:: Endocrine Referred by:: Hernan Khan Reason for Consultation:: Hypothyroidism - History of Present Illness Chief Complaint: anxious History of Present Illness: 64 year old woman with a PMH of Hypothyroidism (Tal Thyroiditis), HTN, HLD, NIDDM, Asthma, CHF, Pancreatitis (with prior ICU admission x 3weeks), Panic attacks, has had weakness palpitation,headache.Recent change in dose of thyroid medication from 200mcg to 75mcg found to have severe hypothyroidism - Smoking History Smoking history: Former smoker Have you smoked in the past 12 months: No If you are a former smoker, when did you quit?: 2019 Home Medications - Allergies Allergies/Adverse Reactions: Allergies Allergy/AdvReac Type Severity Reaction Status Date / Time No Known Allergies Allergy Verified 11/23/19 15:47 - Home Medications Home Medications: Ambulatory Orders Diltiazem [Cardizem -] 60 mg PO BID 11/23/19 Furosemide [Lasix] 20 mg PO DAILY 11/23/19 Metformin HCl [Glucophage] 500 mg PO DAILY 11/23/19 Zolpidem Tartrate [Ambien] 5 mg PO HS 11/23/19 traZODone HCL [Trazodone HCl] 100 mg PO DAILY 11/23/19 Levothyroxine [Synthroid -] 125 mcg PO DAILY@0700 #30 tablet 11/24/19 Family Medical History Family Hx Cardiac Disorders: Mother Family Hx Diabetes: Brother Other Family History: Father's side - Multiple cancers (patient doesn't know which cancers), Grandmother - Thyroid nodule Review of Systems - Review of Systems Constitutional: reports: Lethargy, Malaise Eyes: reports: No Symptoms HENT: reports: No Symptoms Neck: reports: Swollen Glands Cardiovascular: reports: Palpitations, Shortness of Breath Respiratory: reports: SOB, SOB on Exertion Gastrointestinal: reports: Bloating Genitourinary: reports: No Symptoms Breasts: reports: No Symptoms Reported Musculoskeletal: reports: No Symptoms Neurological: reports: Weakness Endocrine: reports: Intolerance to Cold Physical Exam Vital Signs: Vital Signs Temperature 98.3 F 11/24/19 14:00 Pulse Rate 82 11/24/19 14:00 Respiratory Rate 20 11/24/19 14:00 Blood Pressure 120/79 11/24/19 14:00 O2 Sat by Pulse Oximetry (%) 98 11/24/19 14:00 Labs: CBC, BMP 11/24/19 05:45 11/24/19 05:45 Problem List - Problems (1) Hypothyroid Problems reviewed: Yes Code(s): E03.9 - HYPOTHYROIDISM, UNSPECIFIED (2) Palpitations Code(s): R00.2 - PALPITATIONS Assessment/Plan hypothyroidism dose dependent tal thyroiditis dmt2 htn Laboratory Results - last 24 hr 11/23/19 11/23/19 11/23/19 00:04 04:05 19:10 WBC RBC Hgb Hct MCV MCH MCHC RDW Plt Count MPV Sodium Potassium Chloride Carbon Dioxide Anion Gap BUN Creatinine Est GFR (CKD-EPI)AfAm Est GFR (CKD-EPI)NonAf POC Glucometer Random Glucose Calcium Phosphorus Magnesium Troponin I < 0.02 Triglycerides Cholesterol Total LDL Cholesterol HDL Cholesterol TSH Opiates Screen Negative Methadone Screen Negative Barbiturate Screen Negative Phencyclidine Screen Negative Ur Amphetamines Screen Negative MDMA (Ecstasy) Screen Negative Benzodiazepines Screen Negative Cocaine Screen Negative U Marijuana (THC) Screen Negative COVID-19 ([facility]) Not detected 11/24/19 11/24/19 11/24/19 05:45 05:45 05:45 WBC 7.5 RBC 4.45 Hgb 12.7 Hct 37.6 MCV 84.4 MCH 28.6 MCHC 33.9 RDW 14.7 Plt Count 204 MPV 9.2 Sodium 136 Potassium 3.7 Chloride 98 Carbon Dioxide 30 Anion Gap 9 BUN 18.4 H Creatinine 1.0 Est GFR (CKD-EPI)AfAm 69.92 Est GFR (CKD-EPI)NonAf 60.33 POC Glucometer Random Glucose 105 Calcium 9.1 Phosphorus 4.0 Magnesium 1.9 Troponin I Triglycerides 903 H Cholesterol 229 H Total LDL Cholesterol 68 HDL Cholesterol 32 L TSH 86.80 H Opiates Screen Methadone Screen Barbiturate Screen Phencyclidine Screen Ur Amphetamines Screen MDMA (Ecstasy) Screen Benzodiazepines Screen Cocaine Screen U Marijuana (THC) Screen COVID-19 ([facility]) 11/24/19 11/24/19 06:27 11:24 WBC RBC Hgb Hct MCV MCH MCHC RDW Plt Count MPV Sodium Potassium Chloride Carbon Dioxide Anion Gap BUN Creatinine Est GFR (CKD-EPI)AfAm Est GFR (CKD-EPI)NonAf POC Glucometer 109 151 Random Glucose Calcium Phosphorus Magnesium Troponin I Triglycerides Cholesterol Total LDL Cholesterol HDL Cholesterol TSH Opiates Screen Methadone Screen Barbiturate Screen Phencyclidine Screen Ur Amphetamines Screen MDMA (Ecstasy) Screen Benzodiazepines Screen Cocaine Screen U Marijuana (THC) Screen COVID-19 ([facility]) plan: synthroid dose 125mcg daily follow up with outpatient tsh free t4 bgm acmeal
[2019-11-25] MEDS ORDERED: LEVOTHYROXINE NA 125 MCG TABLET (FP) PO SCH (07:00)
== END 2019-11-24 17:27 | disposition home or self-care (01) ==
LOC: JER 15:32 → INTOOBSV 18:39 → UNDOADMOB 18:39 → JERBED 18:39 → J4W 21:30 → JERBED 11-24 08:35 → J4W 11-24 08:35
PROVIDERS: ADMIT Internal Medicine; ATTEND Student in an Organized Health Care Education/Training Program
PROC: 3E013VG Introduction of Insulin into Subcutaneous Tissue, Percutaneous Approach (ICD-10-PCS; principal; 2019-11-24)
PROC: 3E013GC Introduction of Other Therapeutic Substance into Subcutaneous Tissue, Percutaneous Approach (ICD-10-PCS; 2019-11-24)
DX: R00.2 Palpitations (principal); I11.0 Hypertensive heart disease with heart failure; E78.5 Hyperlipidemia, unspecified; E11.9 Type 2 diabetes mellitus without complications; E03.9 Hypothyroidism, unspecified; J44.9 Chronic obstructive pulmonary disease, unspecified; G47.33 Obstructive sleep apnea (adult) (pediatric); I50.9 Heart failure, unspecified; F41.0 Panic disorder [episodic paroxysmal anxiety]; Z87.19 Personal history of other diseases of the digestive system; Z87.891 Personal history of nicotine dependence; Z79.84 Long term (current) use of oral hypoglycemic drugs
CPT/HCPCS: 36415; 71046-TC-FY; 76705-TC; 80048; 80053; 80061; 80307; 81003; 82533; 82550; 82553; 82962; 83721; 83735; 83880; 84100; 84439; 84443; 84484; 85025; 85027; 87086; 93005; 93010; 96372; 99285-25; G0378; U0003